=== PATIENT | male | born 1975 | race Caucasian/White ===

== ENCOUNTER 2018-01-05 21:27 | Emergency (ER) | payer BC ==
--- NOTE | 2018-01-05 22:42 | EDM.PDOC ---
ED HPI GENERAL MEDICAL PROBLEM - General Chief Complaint: General Stated Complaint: CONGESTION/SORE THORAT/COUGH/SINUS INFECTION Time Seen by Provider: 01/05/18 22:22 History Limitations: Reports: No Limitations - History of Present Illness INITIAL COMMENTS - FREE TEXT/NARRATIVE: HISTORY AND PHYSICAL: History of present illness: [42-year-old male presenting emergency department with chief complaint of sinus congestion, headache, fever and chills 2 days. Patient states that 2 days ago he began to have some sinus congestion as well as headaches. He has had associated cough with some clear to yellow sputum production. He has not taken his temperature but has had some chills and felt sweaty. He otherwise has been feeling fine. He denies any nausea, vomiting, diarrhea, chest pain, palpitations, shortness of breath, abdominal pain, leg pain, or calf swelling.] Review of systems: As per history of present illness and below otherwise all systems reviewed and negative. Past medical history: As per history of present illness and as reviewed below otherwise noncontributory. Surgical history: As per history of present illness and as reviewed below otherwise noncontributory. Social history: No reported history of drug or alcohol abuse. Family history: As per history of present illness and as reviewed below otherwise noncontributory. Physical exam: HEENT: Atraumatic, normocephalic, pupils reactive, negative for conjunctival pallor or scleral icterus, mucous membranes moist, throat clear, neck supple, nontender, trachea midline. Lungs: Clear to auscultation, breath sounds equal bilaterally, chest nontender. Heart: S1S2, regular, negative for clicks, rubs, or JVD. Abdomen: Soft, nondistended, nontender. Negative for masses or hepatosplenomegaly. Negative for costovertebral tenderness. Pelvis: Stable nontender. Genitourinary: Deferred. Rectal: Deferred. Extremities: Atraumatic, negative for cords or calf pain. Neurovascular unremarkable. Neuro: Awake, alert, oriented. Cranial nerves II through XII unremarkable. Cerebellum unremarkable. Motor and sensory unremarkable throughout. Exam nonfocal. Diagnostics: [] Therapeutics: [Z-Josep] Impression: [Acute Sinusitis] Plan: [On physical exam patient most likely has acute sinusitis. We will treat with a Z-Josep. He will also use Flonase and Afrin for his sinus congestion maximum 5 days use with Afrin. 2 puffs each nostril twice daily. If he has any worsening symptoms he should return to the emergency department.] chest Pain Score (Numeric/FACES): 1 - Related Data Allergies Allergy/AdvReac Type Severity Reaction Status Date / Time No Known Allergies Allergy Verified 01/05/18 21:59 Home Meds: Home Meds Omeprazole 0 mg PO DAILY 01/05/18 [History] Past Medical History HEENT History: Reports: None Cardiovascular History: Reports: None Respiratory History: Reports: None Genitourinary History: Reports: None Musculoskeletal History: Reports: None Neurological History: Reports: None Psychiatric History: Reports: None Endocrine/Metabolic History: Reports: None - Infectious Disease History Infectious Disease History: Reports: None Social & Family History - Family History Family Medical History: Noncontributory - Recreational Drug Use Recreational Drug Use: No ED ROS GENERAL - Review of Systems Review Of Systems: See Below ED EXAM, GENERAL - Physical Exam Exam: See Below Course - Vital Signs Last Recorded V/S: Last Vital Signs Temp 98.4 F 01/05/18 22:00 Pulse 83 01/05/18 22:00 Resp 18 01/05/18 22:00 BP 151/73 H 01/05/18 22:00 Pulse Ox 96 01/05/18 22:00 Departure - Departure Time of Disposition: 22:43 Disposition: Home, Self-Care 01 Condition: Good Clinical Impression: Acute sinus infection - Discharge Information Referrals: PCP,None [Primary Care Provider] - Additional Instructions: My general discharge The following information is given to patients seen in the emergency department who are being discharged to home. This information is to outline your options for follow-up care. We provide all patients seen in our emergency department with a follow-up referral. The need for follow-up, as well as the timing and circumstances, are variable depending upon the specifics of your emergency department visit. If you don't have a primary care physician on staff, we will provide you with a referral. We always advise you to contact your personal physician following an emergency department visit to inform them of the circumstance of the visit and for follow-up with them and/or the need for any referrals to a consulting specialist. The emergency department will also refer you to a specialist when appropriate. This referral assures that you have the opportunity for follow-up care with a specialist. All of these measure are taken in an effort to provide you with optimal care, which includes your follow-up. Under all circumstances we always encourage you to contact your private physician who remains a resource for coordinating your care. When calling for follow-up care, please make the office aware that this follow-up is from your recent emergency room visit. If for any reason you are refused follow-up, please contact the [facility] Emergency Department at and asked to speak to the emergency department charge nurse. [facility] [address] [place] [id number]
== END 2018-01-05 22:55 | disposition home or self-care (01) ==
LOC: MW.ED 21:27
DX: J01.90 Acute sinusitis, unspecified (principal); Z79.899 Other long term (current) drug therapy
CPT/HCPCS: 99282; 99283

== ENCOUNTER 2019-11-10 04:50 | Emergency (ER) | payer BC ==
[2019-11-10] MEDS ORDERED: Bupivacaine 0.5% 10 ML SDV ONE (05:08)
[2019-11-10] MEDS ORDERED: Bupivacaine 0.5% 10 ML SDV INJECT ONE (05:10)
--- NOTE | 2019-11-10 05:28 | EDM.PDOC ---
ED HPI GENERAL MEDICAL PROBLEM - General Chief Complaint: Back Pain or Injury Stated Complaint: LOWER BACK PAIN Time Seen by Provider: 11/10/19 05:12 Source of Information: Reports: Patient - History of Present Illness INITIAL COMMENTS - FREE TEXT/NARRATIVE: The patient presents to the ER secondary to left lower back pain. The patient does a lot of manual and physical labor and he normally gets aches and pains but this 1 has felt different over the last couple of days. There is point tenderness which she can show me by pushing his thumb onto the spot on his left lower lumbar paraspinal muscles at the L3 level. The pain does not radiate anywhere. It is definitely worse with certain movements. The ache is always there and becomes severe and sharp and stabbing if he tries to bend over to put on his boots, touch his toes, etc. Actually feels better if he puts a lot of pressure on it. Is also worse if he twists. No dysuria, no urinary frequency, no fevers or chills, no radiculopathy down the, no leg weakness, no other complaints. He took ibuprofen 600 mg with little relief. Lower back Pain Score (Numeric/FACES): 5 - Related Data Allergies Allergy/AdvReac Type Severity Reaction Status Date / Time No Known Allergies Allergy Verified 11/10/19 05:13 Home Meds: Home Meds Omeprazole 0 mg PO DAILY 01/05/18 [History] Past Medical History HEENT History: Reports: None Cardiovascular History: Reports: None Respiratory History: Reports: None Gastrointestinal History: Reports: GERD Genitourinary History: Reports: None Musculoskeletal History: Reports: None Neurological History: Reports: None Psychiatric History: Reports: None Endocrine/Metabolic History: Reports: None Hematologic History: Reports: None Oncologic (Cancer) History: Reports: None Dermatologic History: Reports: None - Infectious Disease History Infectious Disease History: Reports: Chicken Pox - Past Surgical History Head Surgeries/Procedures: Reports: None Social & Family History - Family History Family Medical History: Noncontributory - Recreational Drug Use Recreational Drug Use: No ED ROS GENERAL - Review of Systems Review Of Systems: See Below Free Text/Narrative/Comment: Positive for left lower back pain, negative for fevers, negative for chills, negative for dysuria, negative urinary frequency, negative for leg weakness, negative for radiculopathy, all other Positives and pertinent negatives as per HPI. All other pertinent systems were reviewed and are negative ED EXAM,LOWER BACK PAIN/INJURY - Physical Exam Exam: See Below Text/Narrative:: Constitutional: No acute distress, Non-toxic appearance, uncomfortable with certain movements. HEENT: Normocephalic, Atraumatic, EOMI Neck: Normal range of motion, No stridor, trachea midline Respiratory: No respiratory distress, No tachypnea Cardiovascular: Deferred Gastrointestinal: Deferred Genital / Urinary: Deferred Musculoskeletal: All four extremities present and atraumatic Back: FROM, but painful range of motion with point tenderness on the left lower lumbar paraspinal muscles above L3. Integument: Warm, Dry, Color is ethnicity appropriate, No rash. Neuro: Alert, Awake, oriented x3, normal gait, motor strength equal in the bilateral lower extremities at 5/5, no focal deficits noted Psych: Affect, Judgement, mood normal Course - Vital Signs Text/Narrative:: The patient's symptoms are very consistent with pain from musculoskeletal etiology given the point tenderness that is extremely reproducible with certain movements and better if he is just sitting still. There is no colicky component to his history. Left lower lumbar trigger point injection was performed by me using bupivacaine 0.5%. I injected a total of 10 mL into the point of tenderness in the surrounding region and the patient had complete analgesia and now he can move. No complications occurred. Education was provided along with a day off of work and work restrictions. Last Recorded V/S: Last Vital Signs Temp 35.9 C 11/10/19 05:13 Pulse 85 11/10/19 05:13 Resp 18 11/10/19 05:13 BP 124/73 11/10/19 05:13 Pulse Ox 98 11/10/19 05:13 - Orders/Labs/Meds Meds: Medications Discontinued Medications Generic Name Dose Route Start Last Admin Trade Name Cayden PRN Reason Stop Dose Admin Bupivacaine HCl 10 ml 11/10/19 05:10 11/10/19 05:17 Sensorcaine-Mpf 0.5% INJECT 11/10/19 05:11 10 ml ONETIME ONE Administration Bupivacaine HCl Confirm 11/10/19 05:08 11/10/19 05:17 Sensorcaine-Mpf 0.5% Administered 11/10/19 05:09 Not Given Dose 10 ml .ROUTE .STK-MED ONE Departure - Departure Time of Disposition: 05:28 Disposition: Home, Self-Care 01 Clinical Impression: Low back strain - Discharge Information Referrals: PCP,None [Primary Care Provider] - Additional Instructions: BACK PAIN Back pain is very common. The pain often gets better over time. The cause of back pain is usually not dangerous. Most people can learn to manage their back pain on their own. Back pain can last up to 4-6 weeks and still be considered normal. HOME CARE Watch your back pain for any changes. The following actions may help to lessen any pain you are feeling: Stay active. Start with short walks on flat ground if you can. Try to walk farther each day. Carefully exercise regularly, and as tolerated. Exercise helps your back heal faster. It also helps avoid future injury by keeping your muscles strong and flexible. Do not sit, drive, or administrative sales assistant one place for more than 30 minutes. Do not stay in bed for prolonged periods of time. Resting more than 1-2 days can slow down your recovery. Be careful when you bend or lift an object. Use good form when lifting: ? Bend at your knees. ? Keep the object close to your body. ? Do not twist. Sleep on a firm mattress. Lie on your side, and bend your knees. If you lie on your back, put a pillow under your knees. Ibuprofen 800 mg and Tylenol 1000 mg may be taken together every 6 hours as needed for pain Ice often helps for the first 24 hours, after that warm heat usually works better Maintain a healthy weight. Extra weight puts stress on your back. Follow-up with a primary care provider as instructed The following information is given to patients seen in the emergency department who are being discharged to home. This information is to outline your options for follow-up care. We provide all patients seen in our emergency department with a follow-up referral. The need for follow-up, as well as the timing and circumstances, are variable depending upon the specifics of your emergency department visit. If you don't have a primary care physician on staff, we will provide you with a referral. We always advise you to contact your personal physician following an emergency department visit to inform them of the circumstance of the visit and for follow-up with them and/or the need for any referrals to a consulting specialist. The emergency department will also refer you to a specialist when appropriate. This referral assures that you have the opportunity for follow-up care with a specialist. All of these measure are taken in an effort to provide you with optimal care, which includes your follow-up. Under all circumstances we always encourage you to contact your private physician who remains a resource for coordinating your care. When calling for follow-up care, please make the office aware that this follow-up is from your recent emergency room visit. If for any reason you are refused follow-up, please contact the [facility] Emergency Department at and asked to speak to the emergency department charge nurse. Sepsis Event Note - Evaluation Sepsis Screening Result: No Definite Risk - Focused Exam Vital Signs: Vital Signs Temp Pulse Resp BP Pulse Ox 11/10/19 05:13 35.9 C 85 18 124/73 98 Date Exam was Performed: 11/10/19 Time Exam was Performed: 05:22
== END 2019-11-10 05:34 | disposition home or self-care (01) ==
LOC: MW.ED 04:50
DX: S39.012A Strain of muscle, fascia and tendon of lower back, initial encounter (principal); K21.9 Gastro-esophageal reflux disease without esophagitis; Z79.899 Other long term (current) drug therapy; X50.9XXA Other and unspecified overexertion or strenuous movements or postures, initial encounter
CPT/HCPCS: 20552; 99283; J3490